=== PATIENT | male | born 1995 | race Caucasian/White ===

== ENCOUNTER → 2017-10-14 | Outpatient (CLI) | payer MEDICAID ==
--- NOTE | 2017-10-14 14:04 | RADIOLOGY IMAGING REPORT ---
FACILITY: [facility] - [place], [place] PATIENT NAME: Saad Keller : 1995 MR: [id number] V: [id number] EXAM DATE: ORDERING PHYSICIAN: GOLD GAXIOLA TECHNOLOGIST: Location: [facility] Patient: Saad Keller : 1995 Visit/Account:[id number] Date of Sevice: 10/14/2017 ULTRASOUND OF THE SCROTUM AND TESTES HISTORY: Left testicle pain. COMPARISON: None available. Findings: Standard ultrasound of the testicles and scrotum with color flow and spectral analysis. Right testicle: 5.4 x 2.8 x 3.6 cm. Left testicle: 4.9 x 2.8 x 3.4 cm. Testicles: Testicular echogenicity is homogeneous and symmetric. No focal testicular mass or vascula r abnormality. On Doppler evaluation there are normal arterial and venous waveforms within each test icle. Epididymis: The epididymis are within normal limits. No focal epididymal mass or vascular abnormalit y. Hydrocele: None Varicocele: None Scrotum: Negative. IMPRESSION: Normal ultrasound of the testes and scrotum. Report Dictated By: Wellington Oneal MD at 10/14/2017 1:57 PM Report E-Signed By: Wellington Oneal MD at 10/14/2017 2:00 PM [id number]
== END ==
LOC: US 13:00
PROVIDERS: ATTEND Physician Assistant
DX: N50.812 Left testicular pain (principal)
CPT/HCPCS: 76870